=== PATIENT | female | born 1970 | race Caucasian/White ===

== ENCOUNTER 2019-07-17 07:25 | Emergency (ER) | payer OTHER, BC ==
[2019-07-17 07:37] VITALS: BP 128/84
[2019-07-17] MEDS ORDERED: ACETAMINOPHEN W/CODEINE 300-30 MG TAB PO ONE (10:14)
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
== END 2019-07-17 12:50 | disposition home or self-care (01) ==
LOC: ED 07:25
DX: S46.912A Strain of unspecified muscle, fascia and tendon at shoulder and upper arm level, left arm, initial encounter (principal); S39.012A Strain of muscle, fascia and tendon of lower back, initial encounter; S00.93XA Contusion of unspecified part of head, initial encounter; M54.2 Cervicalgia; V49.49XA Driver injured in collision with other motor vehicles in traffic accident, initial encounter; Y93.89 Activity, other specified; Y92.488 Other paved roadways as the place of occurrence of the external cause; Y99.8 Other external cause status
CPT/HCPCS: 70450; 72100; 72125; 99284